=== PATIENT | female | born 1985 | race Caucasian/White ===

== ENCOUNTER 2018-05-21 11:23 | Day surgery (SDC) | payer OTHER ==
[2018-05-16 16:51] VITALS: BMI 33.6
[~2018-05-21 11:23] MED LIST: LACTATED RINGERS 1,000 ML IV SCH; LIDOCAINE 1% 20 ML VIAL (10MG/ML) FOR IV START INTRADERMA PRN
[2018-05-21 11:38] VITALS: RESP 16; TEMP 98.9
[2018-05-21] MEDS ORDERED: LIDOCAINE 1% INJ 10MG/ML (20 ML MDV) ONE (11:55)
[2018-05-21] MEDS ORDERED: PROPOFOL 10 MG/ML 20 ML VIAL IV ONE (11:55)
[2018-05-21] MEDS ORDERED: MIDAZOLAM 2 MG/2 ML VIAL ONE (11:55)
--- NOTE | 2018-05-21 12:26 | P.PCN ---
Date of Procedure: 05/21/18 Procedure(s) Performed: Procedure: Total colonoscopy and polypectomy. Preoperative diagnosis: Screening for colon cancer. Postoperative diagnosis: Diminutive polyp in the proximal sigmoid fulgurated with the snare but no other polyps or tumors seen. Preparation: HalfLytely prep. Sedation: Was provided by anesthesia. Brief clinical history: The patient is a 32-year-old female who is scheduled for this evaluation because of family history of colon cancer in her mother. The patient has no abdominal complaints, bleeding or anemia. This would be her first colonoscopy. Procedure: With the patient on her left lateral decubitus position and after informed consent and adequate sedation, the perianal area was inspected and it did not show any fissures or fistulas. There were no masses felt on digital rectal examination. The Olympus CFH 190L video colonoscope was then inserted in the rectum in the usual fashion and advanced to the cecum. The mucosa appeared healthy. No obvious diverticular disease. There was a diminutive polyp in the proximal sigmoid which was fulgurated with the snare but there were no large polyps or cancer or other pathology. I retroflexed the endoscope in the rectum before the endoscope was withdrawn. The patient tolerated the procedure well. Plan: The patient was reassured. She will follow-up with you as planned and I recommended repeat exam in 5 years.
[2018-05-21 12:39] VITALS: BP 136/87; PULSE 90
== END 2018-05-21 12:56 | disposition home or self-care (01) ==
LOC: ORWHC2ENDO 11:23
DX: Z12.11 Encounter for screening for malignant neoplasm of colon (principal); K63.5 Polyp of colon; Z80.0 Family history of malignant neoplasm of digestive organs; E78.5 Hyperlipidemia, unspecified; K21.9 Gastro-esophageal reflux disease without esophagitis
CPT/HCPCS: 81025; 45385; J2250; J2001; J2704

== ENCOUNTER 2024-07-19 13:39 | Day surgery (SDC) | payer BC ==
[2024-07-18 11:44] VITALS: BMI 29.2
[~2024-07-19 13:39] MED LIST changes: -LIDOCAINE 1% 20 ML VIAL (10MG/ML) FOR IV START INTRADERMA PRN
[2024-07-19] MEDS: IV FLUID CONTINUATION 1,000 ML IV ONE (14:10)
[2024-07-19 14:34] VITALS: TEMP 98.4
[2024-07-19] MEDS ORDERED: PROPOFOL 10 MG/ML 20 ML VIAL IV ONE (15:01)
[2024-07-19] MEDS ORDERED: LIDOCAINE 1% INJ 10MG/ML (20 ML MDV) ONE (15:01)
--- NOTE | 2024-07-19 15:23 | P.PCN ---
Date of Procedure: 07/19/24 Procedure(s) Performed: BRIEF HISTORY: Patient is a 38-year-old pleasant white female scheduled for an elective colonoscopy as a part of screening for history of colon polyps and family history of colon cancer. Her mother was diagnosed with colon cancer at age 40 and her maternal grandfather at age 50. PROCEDURE PERFORMED: Colonoscopy snare polypectomy. PREOPERATIVE DIAGNOSIS: Screening for colon cancer and family history of colon cancer. IV sedation per Anesthesia. PROCEDURE: After informed consent was obtained, the patient, was brought into the endoscopy unit. IV sedation was administered by Anesthesia under continuous monitoring. Digital rectal examination was normal. Initially the Olympus CF-160 flexible video colonoscope was then inserted in the rectum, gradually advanced into the cecum without any difficulty. Careful examination was performed as the scope was gradually being withdrawn. Ileocecal valve and the appendiceal orifice were visualized and appeared normal. Prep was excellent. Mucosa of the cecum, ascending colon, transverse colon, normal. In the descending colon there was a 5 mm polyp that was removed by cold snare polypectomy. Rest of the descending colon, sigmoid colon, and rectum appeared normal. There was a 4 mm polyp removed by cold snare polypectomy. Retroflexion was performed in the rectum and no lesions were seen. The patient tolerated the procedure well. IMPRESSION: 5 mm descending colon polyp status post cold snare polypectomy 4 mm rectal polyp status post cold snare polypectomy Rest of the colon appeared normal RECOMMENDATIONS: Findings of this examination were discussed with the patient as well as her family. She was advised to follow with the biopsy results and recommended repeat colonoscopy in 5 years because of the strong family history of colon cancer.
[2024-07-19 15:36] VITALS: RESP 18
[2024-07-19 15:54] VITALS: BP 110/66; PULSE 70
== END 2024-07-19 15:56 | disposition home or self-care (01) ==
LOC: ORWHC2ENDO 13:39
PROVIDERS: ATTEND Internal Medicine Gastroenterology
DX: Z12.11 Encounter for screening for malignant neoplasm of colon (principal); D12.8 Benign neoplasm of rectum; K21.9 Gastro-esophageal reflux disease without esophagitis; Z80.0 Family history of malignant neoplasm of digestive organs
CPT/HCPCS: 81025; 88305; 45385; J2003; J2704